=== PATIENT | male | born 1960 | race Caucasian/White ===

== ENCOUNTER 2018-02-04 16:12 | Emergency (ER) | payer BC ==
[~2018-02-04] VITALS: Ht 180.3 cm; Wt 86.2 kg
--- NOTE | 2018-02-04 16:40 | PHYS DOC ---
Past History Past Medical History: Asthma Additional Past Medical Histor: back problems Past Surgical History: Tonsillectomy, Other Alcohol Use: None Drug Use: None Adult General Chief Complaint Chief Complaint: TESTICULAR PAIN OR INJURY HPI HPI Patient is a 57-year-old male who presents to the emergency department for evaluation. He states over the past 3 days, he has developed painful left testicular swelling. He has not had any penile discharge or dysuria. He has not had any fevers or chills, and has not had any injuries. Palpation of the affected area worsens his pain. There are no alleviating factors to his symptoms otherwise. He does have chronic problems with his back, and states he was recently seen by the [facility] in [facility], where he had an MRI and was referred to the pain clinic here for a injection. He states he saw the nurse practitioner earlier in the day today, and was set up for an appointment for the procedure in a couple of weeks, and was given a prescription for hydrocodone in the interim, which he took earlier today for his back pain. He is not having any new back pain or flank pain, denies any dysuria, urinary frequency, or hesitancy. Review of Systems Review of Systems Constitutional: Denies fever or chills [] Eyes: Denies change in visual acuity, redness, or eye pain [] HENT: Denies nasal congestion or sore throat. Reports left testicular pain and swelling, as per history of present illness. Respiratory: Denies cough or shortness of breath [] Cardiovascular: The patient denies any shortness of breath, chest pain, palpitations, or orthopnea [] GI: Denies abdominal pain, nausea, vomiting, bloody stools or diarrhea [] : Denies dysuria or hematuria. Reports left testicular pain and swelling. [] Musculoskeletal: Denies back pain or joint pain [] Integument: Denies rash or skin lesions [] Neurologic: Denies headache, focal weakness or sensory changes [] Endocrine: Denies polyuria or polydipsia [] All other systems were reviewed and found to be within normal limits, except as documented in this note. Allergies Allergies Allergies Coded Allergies Type Severity Reaction Last Updated Verified No Known Drug Allergies 02/04/18 No Physical Exam Physical Exam PHYSICAL EXAM: CONSTITUTIONAL: Well developed, well nourished HEAD: normocephalic, atraumatic EENT: PERRL, EOMI. Conjunctivae normal color, sclerae non-icteric; moist mucous membranes. NECK: Supple, non-tender; no meningismus. LUNGS: Lungs CTA, breathing even and unlabored. Normal air movement. HEART: Regular rate and rhythm, no murmur CHEST: No deformity; non-tender ABDOMEN: The abdomen is soft, and non-tender, no masses or bruits. EXTREM: Normal ROM; no deformity, no calf tenderness. Normal pulses palpable in all extremities. There is no pedal edema. SKIN: No rash; no diaphoresis NEURO: Alert; normal speech and cognition; CN's grossly intact; strength grossly intact without focal deficit. BACK: No CVA TTP. GENITOURINARY: Normal external genitalia. There is significant enlargement and tenderness to palpation of the left scrotum, the testicle was not discretely palpable. The testicle is approximately 3 times that of the right side, which is palpable and nontender. There is no palpable hernia or masses. The penis is unremarkable. There is no penile discharge. There is no palpable inguinal lymphadenopathy. The skin of the scrotum is somewhat thickened, with mild erythema, possibly reactive, in the area immediately overlying the left hemiscrotum laterally, does not appear to be continuous with a large left hemiscrotum mass, as the skin is somewhat mobile, the remainder of the skin of the scrotum and perineum appears unremarkable. Current Patient Data Vital Signs Vital Signs Date Time Temp Pulse Resp B/P (MAP) Pulse Ox O2 Delivery O2 Flow Rate FiO2 02/04/18 16:12 98.3 92 20 96 Room Air Lab Results Laboratory Tests Test 02/04/18 16:35 Urine Collection Type Unknown Urine Color Yellow Urine Clarity Clear Urine pH 7.0 Urine Specific [place] 1.020 Urine Protein Neg Urine Glucose (UA) Neg mg/dL Urine Ketones (Stick) Neg mg/dL Urine Blood Neg Urine Nitrite Neg Urine Bilirubin Neg Urine Urobilinogen Dipstick 0.2 mg/dL Urine Leukocyte Esterase Neg Urine RBC 1-2 /HPF Urine WBC 1-4 /HPF Urine Squamous Epithelial Cells None /LPF Urine Bacteria 0 /HPF Urine Mucus Marked /LPF Current Medications Medications (Trade) Dose Ordered Sig/Edson Route PRN Reason Start Time Stop Time Status Last Admin Dose Admin Ketorolac Tromethamine (Toradol Im) 60 mg 1X ONCE IM 02/04/18 16:45 12/26/18 16:46 DC 02/04/18 16:38 EKG EKG [] Radiology/Procedures Radiology/Procedures [PROCEDURE: TESTICULAR/SCROTUM INDICATION: Testicular pain. COMPARISON: None. TECHNIQUE: Grayscale, color and spectral doppler ultrasound images obtained of the scrotum. FINDINGS: Right Testicle: 40 x 31 x 24 mm. Vascular flow is identified. Left Testicle: 38 x 35 x 31 mm. Vascular flow is identified. Scrotal wall thickening with hydrocele on the left which appears complex. Epididymis appears enlarged. IMPRESSION: 1. Scrotal wall thickening as well as enlarged left epididymis which can be seen with epididymitis. In addition there is a complex left-sided hydrocele with septations.] Course & Med Decision Making Course & Med Decision Making Pertinent Labs and Imaging studies reviewed. (See chart for details) []6:00 PM: The patient's condition remained stable. I suspect that what is referred to as a "hydrocele" on the ultrasound is actually a scrotal abscess. It does not appear to be a cutaneous abscess, I suspect the abscesses inside the scrotum. I have paged the urologist at [facility], and I am awaiting a callback at this time, the plan of care and final disposition. The patient might need to be admitted for surgery tomorrow and drainage, although since is has been going on for 3 days and the patient appears relatively nontoxic, oral antibiotics and outpatient follow-up tomorrow to evaluate if surgery is necessary is certainly reasonable. I discussed the case with the patient. 6:10 PM: I discussed the case with Dr. Salguero, [facility]. He suspects the patient might in fact have an infected hydrocele, likely reactive secondary to epididymitis. He recommended starting the patient on 3 weeks of ciprofloxacin and he will see the patient closely in follow-up. I discussed this with the patient, along with return precautions and the need for follow-up. Lucio Disclaimer Lucio Disclaimer This electronic medical record was generated, in whole or in part, using a voice recognition dictation system. Departure Departure: Impression: Primary Impression: Epididymitis Additional Impression: Hydrocele Disposition: HOME, SELF-CARE Condition: STABLE Patient Instructions: Epididymitis, Hydrocele, Infant Additional Instructions: Follow-up with [facility], tomorrow, call [phone] to schedule an appointment. Return to medical care for any new or worsening symptoms, development of increasing pain, fevers, or any other new or concerning symptoms. Scripts Ciprofloxacin Hcl (CIPRO) 500 Mg Tablet 1 TAB PO BID for - for 21 Days, #42 TAB Prov: SHON SHAIKH MD 02/04/18 Problem Qualifiers SHON SHAIKH MD Feb 04, 2018 16:40
[2018-02-04] MEDS ORDERED: KETOROLAC 60 MG/2 ML VIAL. IM ONE (16:45)
[2018-02-04 17:09] LABS: BACTERIA,URINE 0 /HPF (0-FEW); BILIRUBIN,URINE NEG (NEG); CLARITY,URINE CLEAR; COLOR,URINE YELLOW; GLUCOSE,URINE NEG (NEG); NITRITE,URINE NEG (NEG); UROBILINOGEN,URINE 0.2 mg/dL (0.2 mg/dL)
--- NOTE | 2018-02-04 17:31 | RAD ---
INDICATION: Testicular pain. COMPARISON: None. TECHNIQUE: Grayscale, color and spectral doppler ultrasound images obtained of the scrotum. FINDINGS: Right Testicle: 40 x 31 x 24 mm. Vascular flow is identified. Left Testicle: 38 x 35 x 31 mm. Vascular flow is identified. Scrotal wall thickening with hydrocele on the left which appears complex. Epididymis appears enlarged. IMPRESSION: 1. Scrotal wall thickening as well as enlarged left epididymis which can be seen with epididymitis. In addition there is a complex left-sided hydrocele with septations. Electronically signed by: Koby Andre MD (02/04/2018 5:27 PM) [facility]
[2018-02-04] MEDS ORDERED: CIPR500T94 PO (18:10)
[2018-02-04 18:15] VITALS: BP 155/92
== END 2018-02-04 18:15 | disposition home or self-care (01) ==
LOC: ER 16:12
DX: N45.1 Epididymitis (principal); J45.909 Unspecified asthma, uncomplicated
CPT/HCPCS: 76870; 81001; 96372; 99284; J1885